=== PATIENT | female | born 1940 | race Caucasian/White ===

== ENCOUNTER 2021-07-12 14:28 | Emergency (ER) | payer MEDICARE, BC ==
[~2021-07-12] VITALS: Ht 154.9 cm; Wt 75.0 kg
[2021-07-12] MEDS ORDERED: acetaminophen 325mg tablet PO ONE (15:10)
[2021-07-12] MEDS ORDERED: TETanus/Pertussis (Acell)/Diphther VAC/PF (Tdap-Adult) 0.5ml syringe IMVAC ONE (15:10)
[2021-07-12] MEDS ORDERED: bacitracin 15gm ointment TP ONE (15:10)
[2021-07-12] MEDS ORDERED: METH-797 PO (15:52)
[2021-07-12] MEDS ORDERED: HYDR-3964 PO (15:52)
[2021-07-12] MEDS ORDERED: ONDA4TAB12 PO (15:52)
[2021-07-12 16:16] VITALS: BP 159/61
== END 2021-07-12 16:19 | disposition home or self-care (01) ==
LOC: ER 14:29
DX: S42.032A Displaced fracture of lateral end of left clavicle, initial encounter for closed fracture (principal); S29.019A Strain of muscle and tendon of unspecified wall of thorax, initial encounter; S40.021A Contusion of right upper arm, initial encounter; T14.8XXA Other injury of unspecified body region, initial encounter; V98.8XXA Other specified transport accidents, initial encounter; Y93.89 Activity, other specified; Y92.89 Other specified places as the place of occurrence of the external cause; Y99.8 Other external cause status
CPT/HCPCS: 29105; 73030; 90471; 90715; 99284

== ENCOUNTER 2025-01-22 10:31 | Emergency (ER) | payer MEDICARE, BC ==
[~2025-01-22] VITALS: Ht 154.9 cm; Wt 68.0 kg
[~2025-01-22 10:31] MED LIST: METH-797 PO; ONDA-243 PO
[2025-01-22 10:36] VITALS: BP 165/74; PULSE 100; RESP 18; O2SAT 97
--- NOTE | 2025-01-22 10:47 | Physician Documentation ---
History of Present Illness ~ Chief Complaint: Ankle pain Stated Complaint: R ANKLE PAIN Time Seen by MD: 10:32 OK to notify your PCP?: Yes Primary Medical Doctor: DELONTE Source: patient Mode of Arrival: EMS Exam Limitations: no limitations HPI 84-year-old female with chief complaint right ankle pain that is over the lateral aspect of her ankle and started four days ago. No precipitating injury or event. She initially was concerned that it was due to a chiropractic adjustment but states the chiropractor did not do anything to her ankle. Ankle is swollen. Pain is worse when she tries to weight bear. No calf pain, knee pain, bruising, redness. Tetanus witin 5 years: No Medication Reconciliation Allergies: Uncoded Allergies: SULFA (Allergy, Unknown, 07/12/21) Scheduled Methocarbamol (Methocarbamol), 1 TAB PO Q8H Scheduled PRN ONDANSETRON ODT 4mg tablet (Ondansetron Odt), 1 TABLET PO Q6H PRN for nausea/vomiting Past Medical History Past Medical History: No Pertinent History Past Surgical History: noncontributory Alcohol Use: None Drug Use: none Lives In: Home Review of Systems All Other Systems at this time: Reviewed and Negative Physical Exam Vital Signs: Temperature: 98.0, Source: Oral, Heart Rate: 100, Respiratory Rate: 18, BP: 165/74, Pulse Oximetry: 97, Weight: 68.000 Oxygen Flow Rate: 0 Physical Exam General Appearance: Alert, WD/WN. NAD. HEENT: NCAT, PERRL, EOMI. Neck: Supple, trachea midline. Cardiovascular: RRR. No m/r/g. Lungs: CTAB. Breathing unlabored Extremities: Right ankle swelling mostly over the lateral malleolus where there is tenderness to palpation, no erythema or ecchymosis, skin intact. No tenderness at right calf or knee joint. Patient has limited active range motion of her ankle due to pain. Pedal pulses 2+ bilaterally Skin: Warm/dry, normal color Neurological: Alert and oriented x4, normal gait. Psychiatric: Affect congruent with mood. Progress Results/Orders Results/Orders Orders - SADIE BARTLETT Ankle,Limited (Ap/Lat) (01/22/25 11:14) Completed Orders - SADIE BARTLETT Ankle,Limited (Ap/Lat) (01/22/25 11:14) Vital Signs 01/22/25 10:36 Temp 98.0 Pulse 100 Resp 18 B/P (MAP) 165/74 Pulse Ox 97 O2 Flow Rate 0 Medical Decision Making Additional information obtaine: N/A Findings n/a General Diff Dx:Considerations: Include: Other Knee Diff Dx:Considerations: Include: Other Ankle Diff Dx:Considerations: Include: Abrasion, Arthritis, Contusion, DJD, Fracture-metatarsal, Fracture-fibula, Fracture-tarsal, Fracture-tibia, Gout, Hematoma, Laceration, Malunion, Neurovascular injury, Nonunion, Open fracture, Osteomyelitis, Rheumatoid arthritis, Sprain, Septic, Ulcer Foot Diff Dx:Considerations: Include: Other Toe Diff Dx:Considerations: Include: Other Additional Comment X-ray negative for fracture, there was no evidence for any neurovascular problem pedal pulses equal and intact bilaterally, no tenderness over the calf concerning for DVT, no evidence for cellulitis or infectious origin or gout given the lack of erythema. Departure Time of Disposition: 12:01 Disposition: HOME / SELF CARE / HOMELESS Impression: Primary Impression: Sprain of ankle Qualified Codes: S93.401A - Sprain of unspecified ligament of right ankle, initial encounter Condition: Stable Discharge Instructions: Ankle Pain Additional Instructions: X-ray negative for fracture follow up with primary care provider in 1-2weeks, if worsening of pain, swelling, redness-->return to ER Referrals: NO PRIMARY CARE PROVIDER (PCP) Education Educated: Patient Educated regarding: diagnosis, treatment, need for follow up Signature Scribe Signature: x Attestation: SADIE Galeana Jan 22, 2025 10:46
--- NOTE | 2025-01-22 11:30 | RADIOLOGY REPORT ---
PROCEDURE: Right ankle radiographs. INDICATION: right ankle pain x 4days, no known injury, edematous, no erythema or ecchym. TECHNIQUE: 2 views of the right ankle were obtained. COMPARISON: None. FINDINGS: There is no evidence of fracture or dislocation. Joint spaces are maintained. The soft tissues are unremarkable. There is a heel spur. IMPRESSION: 1. No fracture or dislocation.
[2025-01-22 12:24] VITALS: TEMP 98
== END 2025-01-22 12:25 | disposition home or self-care (01) ==
LOC: ER 10:31
DX: S93.401A Sprain of unspecified ligament of right ankle, initial encounter (principal); Z79.899 Other long term (current) drug therapy; X58.XXXA Exposure to other specified factors, initial encounter; Y93.89 Activity, other specified; Y92.89 Other specified places as the place of occurrence of the external cause; Y99.8 Other external cause status
CPT/HCPCS: 73600; 99283; L4360